=== PATIENT | male | born 1980 | race Caucasian/White ===

== ENCOUNTER 2025-02-14 18:44 | Inpatient (IN) | payer OTHER ==
[2025-02-14 18:54] VITALS: TEMP 98.1
--- NOTE | 2025-02-14 19:12 | ED ---
General Adult HPI - General Chief complaint: Alcohol Stated complaint: ETOH Time Seen by Provider: 02/14/25 18:48 Source: patient Mode of arrival: EMS Limitations: no limitations - History of Present Illness Initial comments: Patient presents to the ED from [facility] for evaluation. Patient states that he is at [facility] for alcohol detox. Patient states that his last drink was about 2-1/2 days ago. Patient states that about 2-3 hours ago, he was walking back from dinner at [facility] when he developed lightheadedness and felt shaking his legs. Patient states that he also felt some chest pain and dyspnea at that time. Patient states that these symptoms have since resolved. Patient is unsure of his last Ativan dose at [facility]. Patient denies trauma or injury, fever, headache, focal neuro deficit, cough or cold symptoms, palpitations, syncope, abdominal pain, nausea/vomiting/diarrhea, bloody or melanotic stool, leg or calf swelling or pain, or any other symptoms or complaints. Patient denies illicit drug abuse. - Related Data Allergies Allergy/AdvReac Type Severity Reaction Status Date / Time No Known Allergies Allergy Verified 02/14/25 18:54 Review of Systems ROS Statement: Those systems with pertinent positive or pertinent negative responses have been documented in the HPI. ROS Other: All systems not noted in ROS Statement are negative. Past Medical History Past Medical History: Hypertension Additional Past Medical History / Comment(s): alcohol, Past Surgical History: No Surgical Hx Reported Past Psychological History: Anxiety, Depression Smoking Status: Current every day smoker Past Alcohol Use History: Abuse, Daily, Heavy Past Drug Use History: None Reported General Exam Limitations: no limitations General appearance: alert, in no apparent distress Head exam: Present: atraumatic Eye exam: Present: normal appearance, PERRL, EOMI ENT exam: Present: mucous membranes moist Neck exam: Present: other (Trachea is in midline) Respiratory exam: Present: normal lung sounds bilaterally. Absent: respiratory distress, wheezes, rales, rhonchi, stridor Cardiovascular Exam: Present: normal rhythm, tachycardia, normal heart sounds, other (Normal radial pulses bilaterally) GI/Abdominal exam: Present: soft. Absent: distended, tenderness, guarding Extremities exam: Present: other (Negative Homans' sign bilaterally). Absent: tenderness, pedal edema, calf tenderness Neurological exam: Present: alert, oriented X3. Absent: motor sensory deficit Psychiatric exam: Present: normal affect Skin exam: Present: warm, dry, normal color Course Vital Signs 02/14/25 02/14/25 02/14/25 18:49 18:55 21:00 Temperature 98.1 F Pulse Rate 131 H Pulse Rate [ [address] Technician ] Respiratory 18 20 Rate Blood Pressure 146/103 Blood Pressure 134/95 [Right Arm Supine] O2 Sat by Pulse 97 96 Oximetry - Reevaluation(s) Reevaluation #1: 02/14/25 21:08 Patient reports that his symptoms of now resolved. Patient's tachycardia has now improved. I suspect the patient's tachycardia is likely due to alcohol withdrawal for which she is being treated at [facility]. Patient's troponin is negative. Patient's chest x-ray is unremarkable. The rest of the patient's labs are fairly unremarkable. I do not suspect an emergent medical condition at this time. Will discharge patient back to [facility] at this time. Patient feels comfortable with this plan. He was counseled about alcohol withdrawal, chest pain and lightheadedness. He was clearly explained return and follow-up instructions. He was instructed to follow-up closely with his primary care provider. He feels comfortable with this plan. EKG Findings - EKG Comments: EKG Findings:: ED physician interpretation (interpreted by me): Sinus tachycardia, ventricular rate of 132 bpm, no ectopy, normal SC and QRS intervals, normal QT interval, normal axis, minimal voltage criteria for LVH, no ST or T wave abnormality Medical Decision Making - Medical Decision Making Was pt. sent in by a medical professional or institution (, PA, MATTRESS RENOVATOR, urgent care, hospital, or fdc...) When possible be specific @ -No Did you speak to anyone other than the patient for history (EMS, parent, family, police, friend...)? What history was obtained from this source @ -No Did you review nursing and triage notes (agree or disagree)? Why? @ -I reviewed and agree with nursing and triage notes Were old charts reviewed (outside hosp., previous admission, EMS record, old EKG, old radiological studies, urgent care reports/EKG's, fdc records)? Report findings @ -No old charts were reviewed Differential Diagnosis (chest pain, altered mental status, abdominal pain women, abdominal pain men, vaginal bleeding, weakness, fever, dyspnea, syncope, headache, dizziness, GI bleed, back pain, seizure, CVA, palpatations, mental health, musculoskeletal)? @ -Alcohol withdrawal syndrome, dysrhythmia, chest pain, ACS/MA, anxiety, lightheadedness, electrolyte abnormality, dehydration, GERD, this is not meant to be a complete list. EKG interpreted by me (3pts min.). @ -As above X-rays interpreted by me (1pt min.). @ -Chest x-ray was reviewed myself and shows no acute cardiopulmonary abnormality. I agree with the radiologist's interpretation as above. CT interpreted by me (1pt min.). @ -None done U/S interpreted by me (1pt. min.). @ -None done What testing was considered but not performed or refused? (CT, X-rays, U/S, labs)? Why? @ -None What meds were considered but not given or refused? Why? @ -None Did you discuss the management of the patient with other professionals (professionals i.e. , PA, MATTRESS RENOVATOR, lab, RT, psych nurse, social media job titles, certified court/medical interpreter, teacher, ecological technical officer, manager rn case)? Give summary @ -No Was smoking cessation discussed for >3mins.? @ -No Was critical care preformed (if so, how long)? @ -No Were there social determinants of health that impacted care today? How? (Homelessness, low income, unemployed, alcoholism, drug addiction, transportation, low edu. Level, literacy, decrease access to med. care, longterm, rehab)? @ -No Was there de-escalation of care discussed even if they declined (Discuss DNR or withdrawal of care, Hospice)? DNR status @ -No What co-morbidities impacted this encounter? (DM, HTN, Smoking, COPD, CAD, Cancer, CVA, ARF, Chemo, Hep., AIDS, mental health diagnosis, sleep apnea, morb id obesity)? @ -None Was patient admitted / discharged? Hospital course, mention meds given and rou te, prescriptions, significant lab abnormalities, going to OR and other pertinent info. @ -Patient reports that his symptoms of now resolved. Patient's tachycardia has now improved. I suspect the patient's tachycardia is likely due to alcohol withdrawal for which she is being treated at [facility]. Patient's troponin is negative. Patient's chest x-ray is unremarkable. The rest of the patient's labs are fairly unremarkable. I do not suspect an emergent medical condition at this time. Will discharge patient back to [facility] at this time. Patient feels comfortable with this plan. He was counseled about alcohol withdrawal, chest pain and lightheadedness. He was clearly explained return and follow-up instructions. He was instructed to follow-up closely with his primary care pr amalia. He feels comfortable with this plan. Undiagnosed new problem with uncertain prognosis? @ -No Drug Therapy requiring intensive monitoring for toxicity (Heparin, Nitro, Insulin, Cardizem)? @ -No Were any procedures done? @ -No Diagnosis/symptom? @ -Alcohol withdrawal, chest pain, lightheadedness Acute, or Chronic, or Acute on Chronic? @ -Acute Uncomplicated (without systemic symptoms) or Complicated (systemic symptoms)? @ -Default Side effects of treatment? @ -No Exacerbation, Progression, or Severe Exacerbation? @ -No Poses a threat to life or bodily function? How? (Chest pain, USA, MA, pneumonia, PE, COPD, DKA, ARF, appy, cholecystitis, CVA, Diverticulitis, Homicidal, Suicid al, threat to staff... and all critical care pts) @ -No - Lab Data Result diagrams: 02/14/25 19:26 02/14/25 19:26 Lab Results 02/14/25 02/14/25 02/14/25 Range/Units 19:26 19:26 19:26 WBC 6.45 (4.50-10.00) 10*3/uL RBC 4.24 L (4.40-5.60) 10*6/uL Hgb 14.5 (13.0-17.0) g/dL Hct 40.0 (39.6-50.0) % MCV 94.3 (80.0-97.0) fL MCH 34.2 H (27.0-32.0) pg MCHC 36.3 (32.0-37.0) g/dL Plt Count 147 (140-440) 10*3/uL MPV 10.9 (9.5-12.2) fL Immature Gran % (Auto) 0.3 % Neutrophils % 72.1 % Lymphocytes % 16.4 % Monocytes % 8.2 % Eosinophils % 1.9 % Basophils % 1.1 % Immature Gran # 0.02 (0.00-0.04) 10*3/uL Neutrophils # 4.65 (1.80-7.70) 10*3/uL Lymphocytes # 1.06 (0.90-5.00) 10*3/uL Monocytes # 0.53 (0.20-1.00) 10*3/uL Eosinophils # 0.12 (0.04-0.35) 10*3/uL Basophils # 0.07 (0.00-0.10) 10*3/uL PT 11.9 (10.0-12.5) sec INR 1.1 (<1.2) APTT 22.7 (22.0-30.0) sec Sodium 136 L (137-145) mmol/L Potassium 3.3 L (3.5-5.1) mmol/L Chloride 95 L (98-107) mmol/L Carbon Dioxide 25 (22-30) mmol/L Anion Gap 16 mmol/L BUN 6 L (9-20) mg/dL Creatinine 0.57 L (0.66-1.25) mg/dL Est GFR (CKD-EPI)AfAm >90 (>60 ml/min/1.73 sqM) Est GFR (CKD-EPI)NonAf >90 (>60 ml/min/1.73 sqM) Glucose 115 H (74-99) mg/dL Calcium 10.0 (8.4-10.2) mg/dL Magnesium 1.3 L (1.6-2.3) mg/dL Total Bilirubin 1.0 (0.2-1.3) mg/dL AST 63 H (17-59) U/L ALT 64 H (4-49) U/L Alkaline Phosphatase 71 (38-126) U/L Troponin I (0.000-0.034) ng/mL NT-Pro-B Natriuret Pep 49 pg/mL Total Protein 7.1 (6.3-8.2) g/dL Albumin 4.6 (3.5-5.0) g/dL 02/14/25 Range/Units 19:26 WBC (4.50-10.00) 10*3/uL RBC (4.40-5.60) 10*6/uL Hgb (13.0-17.0) g/dL Hct (39.6-50.0) % MCV (80.0-97.0) fL MCH (27.0-32.0) pg MCHC (32.0-37.0) g/dL Plt Count (140-440) 10*3/uL MPV (9.5-12.2) fL Immature Gran % (Auto) % Neutrophils % % Lymphocytes % % Monocytes % % Eosinophils % % Basophils % % Immature Gran # (0.00-0.04) 10*3/uL Neutrophils # (1.80-7.70) 10*3/uL Lymphocytes # (0.90-5.00) 10*3/uL Monocytes # (0.20-1.00) 10*3/uL Eosinophils # (0.04-0.35) 10*3/uL Basophils # (0.00-0.10) 10*3/uL PT (10.0-12.5) sec INR (<1.2) APTT (22.0-30.0) sec Sodium (137-145) mmol/L Potassium (3.5-5.1) mmol/L Chloride (98-107) mmol/L Carbon Dioxide (22-30) mmol/L Anion Gap mmol/L BUN (9-20) mg/dL Creatinine (0.66-1.25) mg/dL Est GFR (CKD-EPI)AfAm (>60 ml/min/1.73 sqM) Est GFR (CKD-EPI)NonAf (>60 ml/min/1.73 sqM) Glucose (74-99) mg/dL Calcium (8.4-10.2) mg/dL Magnesium (1.6-2.3) mg/dL Total Bilirubin (0.2-1.3) mg/dL AST (17-59) U/L ALT (4-49) U/L Alkaline Phosphatase (38-126) U/L Troponin I <0.012 (0.000-0.034) ng/mL NT-Pro-B Natriuret Pep pg/mL Total Protein (6.3-8.2) g/dL Albumin (3.5-5.0) g/dL - Radiology Data Chest x-ray: No acute cardiopulmonary disease/process. Disposition Clinical Impression: Chest pain, Lightheadedness, Alcohol withdrawal syndrome Disposition: HOME SELF-CARE Condition: Stable Instructions (If sedation given, give patient instructions): Chest Pain (ED), Alcohol Withdrawal (ED), Lightheadedness (ED) Additional Instructions: Return to the ER immediately should you develop new or worsening pain, increased shortness of breath, feeling dizzy or faint, a fever, a seizure, or new or worsening symptoms. Follow-up closely with your primary care provider. Is patient prescribed a controlled substance at d/c from ED?: No Referrals: None,Stated [Primary Care Provider] - 1-2 days Palmer Moore DO [STAFF PHYSICIAN] - 1-2 days Time of Disposition: 21:10
[2025-02-14] MEDS: LORazepam 1 MG/0.5 ML VIAL IV STA ×2 (19:40→23:57)
[2025-02-14] MEDS: SODIUM CHLORIDE 0.9% 1,000 ML IV STA (19:42)
[2025-02-14 20:03] LABS: Basophils # (A) 0.07 10*3/uL (0.00-0.10); Basophils % (A) 1.1 %; Eosinophils # (A) 0.12 10*3/uL (0.04-0.35); Eosinophils % (A) 1.9 %; HGB 14.5 g/dL (13.0-17.0); Lymphocytes # (A) 1.06 10*3/uL (0.90-5.00); Lymphocytes % (A) 16.4 %; MCH 34.2 pg (27.0-32.0); MCHC 36.3 g/dL (32.0-37.0); MCV 94.3 fL (80.0-97.0); Mean Platelet Volume 10.9 fL (9.5-12.2); Monocytes # (A) 0.53 10*3/uL (0.20-1.00); Monocytes % (A) 8.2 %; Neutrophils # (A) 4.65 10*3/uL (1.80-7.70); Neutrophils % (A) 72.1 %; Platelet Count 147 10*3/uL (140-440); RBC 4.24 10*6/uL (4.40-5.60); RDW 12.2 % (11.5-14.5); WBC 6.45 10*3/uL (4.50-10.00)
[2025-02-14 20:19] LABS: Partial Thromboplastin Time 22.7 sec (22.0-30.0)
--- NOTE | 2025-02-14 20:20 | XR ---
EXAMINATION TYPE: XR chest 2V DATE OF EXAM: 02/14/2025 8:01 PM COMPARISON: None TECHNIQUE: XR chest 2V Frontal and lateral views of the chest. CLINICAL INDICATION:Male, 44 years old with history of Chest Pain; FINDINGS: Lungs/Pleura: There is no evidence of pleural effusion, focal consolidation, or pneumothorax. Pulmonary vascularity: Unremarkable. Heart/mediastinum: Cardiomediastinal silhouette is unremarkable. Musculoskeletal: No acute osseous pathology. IMPRESSION: No acute cardiopulmonary disease/process. [facility], , 02/14/2025 8:18 PM
[2025-02-14 20:23] LABS: ALT 64 U/L (4-49); AST 63 U/L (17-59); African American GFR (CKD) >90 (>60 ml/min/1.73 sqM); Albumin 4.6 g/dL (3.5-5.0); Alkaline Phosphatase 71 U/L (38-126); Anion Gap 16 mmol/L; Blood Urea Nitrogen 6 mg/dL (9-20); Carbon Dioxide 25 mmol/L (22-30); Chloride 95 mmol/L (98-107); Glucose 115 mg/dL (74-99); Magnesium 1.3 mg/dL (1.6-2.3); Non-African American GFR(CKD) >90 (>60 ml/min/1.73 sqM); Potassium 3.3 mmol/L (3.5-5.1); Sodium 136 mmol/L (137-145); Total Protein 7.1 g/dL (6.3-8.2)
[2025-02-14 20:31] LABS: NT-Pro-B-Type Natriuretic Pept 49 pg/mL
[2025-02-14 20:36] LABS: INR 1.1 (<1.2); Prothrombin Time 11.9 sec (10.0-12.5)
[2025-02-14] MEDS: NICOTINE 21MG/24HR PATCH TRANSDERM STA (22:36)
[2025-02-14] MEDS: SODIUM CHLORIDE 0.9% 1,000 ML IV ONE (22:38)
[2025-02-14] MEDS ORDERED: LORazepam 1 MG TAB PO PRN ×3 (22:53)
[2025-02-14] MEDS ORDERED: ONDANSETRON 4 MG/2 ML VIAL IVP PRN (22:53)
[2025-02-14] MEDS ORDERED: LORazepam 0.5 MG TAB PO PRN (22:53)
[2025-02-14] MEDS ORDERED: MORPHINE SULFATE 4 MG/ML SYRINGE IV PRN (22:53)
--- NOTE | 2025-02-14 22:58 | ED ---
Medical Decision Making - Medical Decision Making 44 male who upon discharge began have severely elevated heart rate significant tremors and significant alcohol withdrawal, patient will be admitted for pending DTs - Lab Data Result diagrams: 02/14/25 19:26 02/14/25 19:26 Lab Results 02/14/25 02/14/25 02/14/25 Range/Units 19:26 19:26 19:26 WBC 6.45 (4.50-10.00) 10*3/uL RBC 4.24 L (4.40-5.60) 10*6/uL Hgb 14.5 (13.0-17.0) g/dL Hct 40.0 (39.6-50.0) % MCV 94.3 (80.0-97.0) fL MCH 34.2 H (27.0-32.0) pg MCHC 36.3 (32.0-37.0) g/dL Plt Count 147 (140-440) 10*3/uL MPV 10.9 (9.5-12.2) fL Immature Gran % (Auto) 0.3 % Neutrophils % 72.1 % Lymphocytes % 16.4 % Monocytes % 8.2 % Eosinophils % 1.9 % Basophils % 1.1 % Immature Gran # 0.02 (0.00-0.04) 10*3/uL Neutrophils # 4.65 (1.80-7.70) 10*3/uL Lymphocytes # 1.06 (0.90-5.00) 10*3/uL Monocytes # 0.53 (0.20-1.00) 10*3/uL Eosinophils # 0.12 (0.04-0.35) 10*3/uL Basophils # 0.07 (0.00-0.10) 10*3/uL PT 11.9 (10.0-12.5) sec INR 1.1 (<1.2) APTT 22.7 (22.0-30.0) sec Sodium 136 L (137-145) mmol/L Potassium 3.3 L (3.5-5.1) mmol/L Chloride 95 L (98-107) mmol/L Carbon Dioxide 25 (22-30) mmol/L Anion Gap 16 mmol/L BUN 6 L (9-20) mg/dL Creatinine 0.57 L (0.66-1.25) mg/dL Est GFR (CKD-EPI)AfAm >90 (>60 ml/min/1.73 sqM) Est GFR (CKD-EPI)NonAf >90 (>60 ml/min/1.73 sqM) Glucose 115 H (74-99) mg/dL Calcium 10.0 (8.4-10.2) mg/dL Magnesium 1.3 L (1.6-2.3) mg/dL Total Bilirubin 1.0 (0.2-1.3) mg/dL AST 63 H (17-59) U/L ALT 64 H (4-49) U/L Alkaline Phosphatase 71 (38-126) U/L Troponin I (0.000-0.034) ng/mL NT-Pro-B Natriuret Pep 49 pg/mL Total Protein 7.1 (6.3-8.2) g/dL Albumin 4.6 (3.5-5.0) g/dL 02/14/25 Range/Units 19:26 WBC (4.50-10.00) 10*3/uL RBC (4.40-5.60) 10*6/uL Hgb (13.0-17.0) g/dL Hct (39.6-50.0) % MCV (80.0-97.0) fL MCH (27.0-32.0) pg MCHC (32.0-37.0) g/dL Plt Count (140-440) 10*3/uL MPV (9.5-12.2) fL Immature Gran % (Auto) % Neutrophils % % Lymphocytes % % Monocytes % % Eosinophils % % Basophils % % Immature Gran # (0.00-0.04) 10*3/uL Neutrophils # (1.80-7.70) 10*3/uL Lymphocytes # (0.90-5.00) 10*3/uL Monocytes # (0.20-1.00) 10*3/uL Eosinophils # (0.04-0.35) 10*3/uL Basophils # (0.00-0.10) 10*3/uL PT (10.0-12.5) sec INR (<1.2) APTT (22.0-30.0) sec Sodium (137-145) mmol/L Potassium (3.5-5.1) mmol/L Chloride (98-107) mmol/L Carbon Dioxide (22-30) mmol/L Anion Gap mmol/L BUN (9-20) mg/dL Creatinine (0.66-1.25) mg/dL Est GFR (CKD-EPI)AfAm (>60 ml/min/1.73 sqM) Est GFR (CKD-EPI)NonAf (>60 ml/min/1.73 sqM) Glucose (74-99) mg/dL Calcium (8.4-10.2) mg/dL Magnesium (1.6-2.3) mg/dL Total Bilirubin (0.2-1.3) mg/dL AST (17-59) U/L ALT (4-49) U/L Alkaline Phosphatase (38-126) U/L Troponin I <0.012 (0.000-0.034) ng/mL NT-Pro-B Natriuret Pep pg/mL Total Protein (6.3-8.2) g/dL Albumin (3.5-5.0) g/dL Disposition Clinical Impression: Chest pain, Lightheadedness, Alcohol withdrawal syndrome, Tachycardia Disposition: ADMITTED IP TO [facility] Condition: Fair Instructions (If sedation given, give patient instructions): Chest Pain (ED), Alcohol Withdrawal (ED), Lightheadedness (ED) Additional Instructions: Return to the ER immediately should you develop new or worsening pain, increased shortness of breath, feeling dizzy or faint, a fever, a seizure, or new or worsening symptoms. Follow-up closely with your primary care provider. Is patient prescribed a controlled substance at d/c from ED?: No Referrals: Palmer Moore DO [STAFF PHYSICIAN] - 1-2 days None,Stated [Primary Care Provider] - 1-2 days Time of Disposition: 23:00
[2025-02-14] MEDS: POTASSIUM BICARBONATE/CIT AC 20 MEQ TABLET.EFF PO ONE ×2 (23:03→23:04)
[2025-02-14] MEDS: MAGNESIUM OXIDE 400 MG TAB PO STA ×2 (23:05)
[2025-02-14] MEDS: DEXTROSE 5%-0.45% NACL 1,000 ML IV SCH (23:06)
[2025-02-14] MEDS ORDERED: NALOXONE 0.4 MG/ML 1 ML VIAL IV PRN (23:46)
[2025-02-15] MEDS: LORazepam 1 MG/0.5 ML VIAL IV STA (01:02)
--- NOTE | 2025-02-15 03:32 | P.HPIM ---
History of Present Illness H&P Date: 02/15/25 44-year-old male with alcohol dependence and abuse Patient was sent in from [place] for evaluation of tachycardia dizziness and dyspnea. Patient reports that he was walking back from dinner at [place] when suddenly started feeling palpitations and felt weak along with shortness of breath for which triggered staff to notify EMS and brought to the hospital for evaluation. He reports that he had been through alcohol withdrawals in the past and possible withdrawal seizures but never required ICU admission. Currently he feels that the symptoms has been resolved however when he was in the ED he was getting ready to be discharged but as he got up and started walking he became tachycardic again and having tremors for which she was kept for monitoring for possible severe withdrawal symptoms Patient admits to heavy alcohol consumption about 1/5 every day he also admits to tobacco smoking denies any street drugs Otherwise patient denies any sore throat coughing shortness of breath fevers chills nausea vomiting abdominal pain review of systems Pertinent positives as noted in HPI. All other systems were reviewed and are negative on exam Constitutional: No acute distress, conversant, pleasant Eyes: Anicteric sclerae, moist conjunctiva, Pupils equal round reactive to light ENMT: NC/AT Oropharynx clear, no erythema, or exudates Neck: Supple, no masses, or JVD No carotid bruits No thyromegaly Lungs: Clear to auscultation Clear to percussion Normal respiratory effort, no accessory muscle use Cardiovascular: Heart regular in rate and rhythm, No murmurs, gallops, or rubs No peripheral edema Abdominal: Soft Nontender, no guarding, rebound or rigidity Abdomen moving with respiration Normoactive bowel sounds Extremities: No digital cyanosis No clubbing Pedal pulses intact and symmetrical Radial pulses intact and symmetrical No calf tenderness Psychiatric: Alert and oriented to person, place and time Appropriate affect fair judgement Neuro Muscles Strength 5/5 in all 4 extremities Sensation to light touch grossly present throughout Cranial nerves II-XII grossly intact Past Medical History Past Medical History: Hypertension Additional Past Medical History / Comment(s): alcohol, Past Surgical History: No Surgical Hx Reported Past Psychological History: Anxiety, Depression Smoking Status: Current every day smoker Past Alcohol Use History: Abuse, Daily, Heavy Past Drug Use History: None Reported Medications and Allergies Allergies Allergy/AdvReac Type Severity Reaction Status Date / Time No Known Allergies Allergy Verified 02/14/25 18:54 Physical Exam Vitals: Vital Signs Temp Pulse Pulse Resp BP BP Pulse Ox 02/15/25 01:09 96 20 150/99 98 02/14/25 22:28 106 H 19 150/107 96 02/14/25 21:45 165 H 02/14/25 21:00 112 H 20 134/95 96 02/14/25 18:55 137 H 02/14/25 18:49 98.1 F 131 H 18 146/103 97 Intake and Output 02/14/25 02/14/25 02/15/25 14:59 22:59 06:59 Other: Weight 61.235 kg Results CBC & Chem 7: 02/14/25 19:26 02/14/25 19:26 Labs: Abnormal Lab Results - Last 24 Hours (Table) 02/14/25 02/14/25 Range/Units 19:26 19:26 RBC 4.24 L (4.40-5.60) 10*6/uL MCH 34.2 H (27.0-32.0) pg Sodium 136 L (137-145) mmol/L Potassium 3.3 L (3.5-5.1) mmol/L Chloride 95 L (98-107) mmol/L BUN 6 L (9-20) mg/dL Creatinine 0.57 L (0.66-1.25) mg/dL Glucose 115 H (74-99) mg/dL Magnesium 1.3 L (1.6-2.3) mg/dL AST 63 H (17-59) U/L ALT 64 H (4-49) U/L Assessment and Plan Assessment: 44-year-old male with alcohol dependence and abuse coming in for severe alcohol withdrawal syndrome I discussed case with ED doctor and accepted the admission for severe alcohol withdrawal pending DTs with anticipated length of stay more than 2 midnights Alcohol dependence and abuse Severe alcohol withdrawal syndrome Benzo per CIWA scale Thiamine p.o. daily IV fluid hydration with normal saline 100 cc/h Supportive care Seizure precautions Blood work showing white count 6.45 hemoglobin 14.5 platelet count 147 unremarkable Renal function showing sodium 136 BUN 6 creatinine 0.57 Mild hypokalemia Replace potassium oral 40 mg K-Dur Magnesium 1.3 Replace magnesium with mag sulfate 2 g IV piggyback Full code DVT prophylaxis Lovenox 40 mg subcu daily GI prophylaxis Protonix 40 mg p.o. daily
[2025-02-15] MEDS: LORazepam 1 MG/0.5 ML VIAL IV PRN ×2 (03:35→10:38)
[2025-02-15] MEDS: cloNIDine HCL 0.2 MG TAB PO STA (04:32)
[2025-02-15] MEDS: cloNIDine HCL 0.1 MG TAB PO STA ×2 (06:31→06:33)
[2025-02-15] MEDS: LORazepam 1 MG TAB PO PRN (06:37)
[2025-02-15 07:07] LABS: Basophils % (A) 1.6 %; Eosinophils # (A) 0.25 10*3/uL (0.04-0.35); HCT 37.5 % (39.6-50.0); HGB 13.5 g/dL (13.0-17.0); Lymphocytes # (A) 1.76 10*3/uL (0.90-5.00); Lymphocytes % (A) 28.2 %; MCH 34.4 pg (27.0-32.0); MCV 95.4 fL (80.0-97.0); Mean Platelet Volume 10.4 fL (9.5-12.2); Monocytes % (A) 9.6 %; Neutrophils # (A) 3.52 10*3/uL (1.80-7.70); Neutrophils % (A) 56.3 %; RBC 3.93 10*6/uL (4.40-5.60); RDW 12.2 % (11.5-14.5); WBC 6.25 10*3/uL (4.50-10.00)
[2025-02-15 07:30] LABS: ALT 53 U/L (4-49); AST 54 U/L (17-59); African American GFR (CKD) >90 (>60 ml/min/1.73 sqM); Albumin 3.8 g/dL (3.5-5.0); Alkaline Phosphatase 75 U/L (38-126); Anion Gap 10 mmol/L; Blood Urea Nitrogen 3 mg/dL (9-20); Carbon Dioxide 23 mmol/L (22-30); Chloride 99 mmol/L (98-107); Glucose 109 mg/dL (74-99); Magnesium 1.4 mg/dL (1.6-2.3); Non-African American GFR(CKD) >90 (>60 ml/min/1.73 sqM); Phosphorus 3.2 mg/dL (2.5-4.5); Potassium 3.2 mmol/L (3.5-5.1); Sodium 132 mmol/L (137-145); Total Bilirubin 0.9 mg/dL (0.2-1.3); Total Protein 6.1 g/dL (6.3-8.2)
[2025-02-15 07:50] LABS: Platelet Count 113 10*3/uL (140-440)
[2025-02-15] MEDS: SODIUM CHLORIDE 0.9% 1,000 ML IV SCH (07:55)
[2025-02-15] MEDS: PANTOPRAZOLE 40 MG TABLET PO SCH (07:56)
[2025-02-15] MEDS: ENOXAPARIN 40 MG/0.4 ML SYRINGE SQ SCH (07:59)
[2025-02-15] MEDS: THIAMINE 100 MG TAB PO SCH (07:59)
[2025-02-15] MEDS: FOLIC ACID 1 MG TAB PO SCH (07:59)
[2025-02-15] MEDS: MULTIVITAMINS, THERA 1 EACH TAB PO SCH (07:59)
[2025-02-15] MEDS ORDERED: MAGNESIUM OXIDE 400 MG TAB PO SCH (09:00)
[2025-02-15] MEDS ORDERED: POTASSIUM BICARBONATE/CIT AC 20 MEQ TABLET.EFF PO SCH (09:00)
[2025-02-15] MEDS: POTASSIUM CHLORIDE ER 20 MEQ TAB.ER PO STA (10:14)
[2025-02-15] MEDS: MAGNESIUM SULFATE-D5W PMX 1 GM in DEXTROSE/WATER 1 100ML.BAG IVPB SCH (10:14)
[2025-02-15] MEDS: lisinopriL 10 MG TAB PO SCH (18:50)
[2025-02-15] MEDS: chlordiazePOXIDE 25 MG CAP PO SCH (19:43)
[2025-02-15] MEDS: NICOTINE 21MG/24HR PATCH TRANSDERM SCH (23:41)
[2025-02-16] MEDS: chlordiazePOXIDE 25 MG CAP PO SCH (05:21)
[2025-02-16] MEDS: LORazepam 1 MG/0.5 ML VIAL IM STA (05:27)
[2025-02-16] MEDS: LORazepam 1 MG/0.5 ML VIAL IV PRN (06:07)
[2025-02-16 10:28] VITALS: BP 118/86
[2025-02-16 11:45] VITALS: PULSE 114; RESP 20
--- NOTE | 2025-02-16 12:26 | P.DS ---
Providers Date of admission: 02/14/25 23:47 Expected date of discharge: 02/16/25 Attending physician: Mike Todd MD Primary care physician: Stated None Hospital Course: 44 year old M with PMH of alcohol abuse presents from [place] for evaluation of tachycardia and elevated BP. Patient admits to heavy alcohol consumption about 1/5 every day he also admits to tobacco smoking. In the ED he underwent extensive evaluation. BP 146/103, HR 131, RR 18, T 98.1F, 97% on RA. Labs significant for RBC 4.24, Na 136, K 3.3, Cl 95, BUN 6, Cr 0.57, glu 115, Mag 1.3, AST 63, ALT 64, Trop <0.012, BNP 49. CXR no acute process. EKG sinus t achycardia with rate of 132. He was started on CIWA protocol and admitted for further workup and management. Electrolytes replaced. 02/16 Patient was seen and examined. He reports no complaints. Looking forward to going home. Repeat K is 3.7. EKG done today shows sinus tachycardia with rate of 112. Discharge Plans: Discharge back to [place] for continued EtOH detox and treatment. BP 118/86, HR 114, RR 18, 99% on RA. General: non toxic, no distress, appears at stated age Derm: warm, dry Head: atraumatic, normocephalic, symmetric Eyes: EOMI, no lid lag, anicteric sclera Mouth: no lip lesion, mucus membranes moist Cardiovascular: S1S2 tachy, no murmur Lungs: Clear to auscultation bilaterally, no rhonchi, no rales , no accessory muscle use Ext: no gross muscle atrophy, no edema, no contractures Neuro: no focal neuro deficits Psych: Alert and oriented. Discharge Diagnosis: Alcohol withdrawal Macrocytosis with Thrombocytopenia Hyponatremia Hypokalemia Transaminitis Hypomagnesemia This complex discharge took 35 minutes to complete. Patient Condition at Discharge: Stable Plan - Discharge Summary New Discharge Prescriptions: Continue cloNIDine HCL [Catapres] 0.1 - 0.3 mg PO Q4H PRN PRN Reason: BP >160/100 Chlorpheniramine Maleate [Chlor-Trimeton] 4 mg PO Q4H PRN PRN Reason: Allergy Symptoms Loperamide HCl [Imodium A-D] 4 mg PO QID PRN MDD 8 TABLETS PRN Reason: Loose Stool Folic Acid 1 mg PO DAILY Hyoscyamine Sulfate [Levsin] 0.125 mg PO QID PRN PRN Reason: CRAMPS Multivitamins, Thera [Multivitamin (formulary)] 1 tab PO DAILY Ibuprofen [Motrin Ib] 600 mg PO Q6H PRN PRN Reason: Pain Acetaminophen [Tylenol] 650 mg PO Q4HR PRN PRN Reason: PAIN OR FEVER lisinopriL [Zestril] 10 mg PO DAILY LORazepam [Ativan] 1 - 2 mg PO Q4H PRN PRN Reason: Anxiety Calcium Phos/D3/Magnesium/Zinc [Yyvbhga-Skb-Lros-Vitamin D3] 1 tab PO TID PRN PRN Reason: cramps Mylanta 30 ml PO Q4H PRN PRN Reason: Gi Upset Melatonin 10 mg PO HS Thiamine [Vitamin B-1] 100 mg PO DAILY traZODone HCL [Desyrel] 50 - 150 mg PO HS PRN PRN Reason: Insomnia ondansetron HCL [Zofran] 8 mg PO Q6H PRN PRN Reason: Nausea Discharge Medication List Acetaminophen [Tylenol] 650 mg PO Q4HR PRN 02/15/25 [History] Calcium Phos/D3/Magnesium/Zinc [Rqyktym-Zih-Ypnj-Vitamin D3] 1 tab PO TID PRN 02/15/25 [History] Chlorpheniramine Maleate [Chlor-Trimeton] 4 mg PO Q4H PRN 02/15/25 [History] Folic Acid 1 mg PO DAILY 02/15/25 [History] Hyoscyamine Sulfate [Levsin] 0.125 mg PO QID PRN 02/15/25 [History] Ibuprofen [Motrin Ib] 600 mg PO Q6H PRN 02/15/25 [History] LORazepam [Ativan] 1 - 2 mg PO Q4H PRN 02/15/25 [History] Loperamide HCl [Imodium A-D] 4 mg PO QID PRN MDD 8 TABLETS 02/15/25 [History] Melatonin 10 mg PO HS 02/15/25 [History] Multivitamins, Thera [Multivitamin (formulary)] 1 tab PO DAILY 02/15/25 [History] Mylanta 30 ml PO Q4H PRN 02/15/25 [History] Thiamine [Vitamin B-1] 100 mg PO DAILY 02/15/25 [History] cloNIDine HCL [Catapres] 0.1 - 0.3 mg PO Q4H PRN 02/15/25 [History] lisinopriL [Zestril] 10 mg PO DAILY 02/15/25 [History] ondansetron HCL [Zofran] 8 mg PO Q6H PRN 02/15/25 [History] traZODone HCL [Desyrel] 50 - 150 mg PO HS PRN 02/15/25 [History] Follow up Appointment(s)/Referral(s): Palmer Moore, [STAFF PHYSICIAN] - 1-2 days None,Stated [Primary Care Provider] - 1-2 days Patient Instructions/Handouts: Chest Pain (ED), Alcohol Withdrawal (ED), Lightheadedness (ED) Activity/Diet/Wound Care/Special Instructions: Return to the ER immediately should you develop new or worsening pain, increased shortness of breath, feeling dizzy or faint, a fever, a seizure, or new or worsening symptoms. Follow-up closely with your primary care provider. Discharge Disposition: OTHER INSTITUTION NOT DEFINED
== END 2025-02-16 12:20 | disposition other institution (70) | DRG 775 ==
LOC: EC 18:44 → 6NMEDSUR 23:47
PROVIDERS: ADMIT Internal Medicine; ATTEND Internal Medicine
DX: F10.231 Alcohol dependence with withdrawal delirium (principal); Z71.41 Alcohol abuse counseling and surveillance of alcoholic; D69.6 Thrombocytopenia, unspecified; D75.89 Other specified diseases of blood and blood-forming organs; E83.42 Hypomagnesemia; E87.1 Hypo-osmolality and hyponatremia; E87.6 Hypokalemia; F17.200 Nicotine dependence, unspecified, uncomplicated; F32.A Depression, unspecified; F41.9 Anxiety disorder, unspecified; I10 Essential (primary) hypertension; R00.0 Tachycardia, unspecified; R74.01 Elevation of levels of liver transaminase levels
CPT/HCPCS: 36415; 71046; 80053; 83735; 83880; 84100; 84132; 84484; 85025; 85610; 85730; 93005; 96361; 96365; 96366; 96367; 96372; 96375; 96376; 99285